=== PATIENT | male | born 1945 | race Caucasian/White ===

== ENCOUNTER 2022-10-02 07:39 | Day surgery (SDC) | payer MEDICARE ==
[2022-10-02] MEDS ORDERED: BUPIVACAINE 0.5% VIAL IJ ONE (07:40)
[2022-10-02] MEDS ORDERED: Depo-Medrol 40 MG/ML IM ONE (07:40)
[2022-10-02] MEDS ORDERED: DIPRIVAN 200 MG/20 ML IV ONE (08:46)
--- NOTE | 2022-10-02 10:17 | XRAY ---
Indication: Bilateral SI joint injection. Intraoperative fluoroscopy provided for 15 seconds. 4 digital spot image submitted for interpretation demonstrates posterior needle tip projecting over the expected left and right SI joint. Correlate with intraoperative findings/report.
--- NOTE | 2022-10-02 10:54 | XRAY ---
15 seconds of fluoroscopy was used in surgery for a bilateral sacroiliac joint injection.
[2022-10-02] MEDS ORDERED: Lactated Ringers 1,000 ML IV ONE (13:33)
== END 2022-10-02 09:10 | disposition home or self-care (01) ==
LOC: SDC-PAIN 07:39
PROVIDERS: ATTEND Psychiatry & Neurology Pain Medicine
DX: M46.1 Sacroiliitis, not elsewhere classified (principal); E11.9 Type 2 diabetes mellitus without complications; Z79.899 Other long term (current) drug therapy
CPT/HCPCS: 01992; 27096; 72202; 77002; 82947; 99100; G0260; J1030; J2704

== ENCOUNTER 2022-11-20 07:55 | Day surgery (SDC) | payer MEDICARE | END 2022-11-20 08:45 | disposition home or self-care (01) | LOC: SDC-PAIN 07:55 | PROVIDERS: ATTEND Psychiatry & Neurology Pain Medicine | DX: Z53.8 Procedure and treatment not carried out for other reasons (principal); E11.9 Type 2 diabetes mellitus without complications | CPT/HCPCS: 82947 ==

== ENCOUNTER 2025-01-19 15:35 | Day surgery (SDC) | payer MEDICARE ==
[2025-01-19] MEDS ORDERED: BUPIVACAINE 0.5% VIAL IJ ONE (15:36)
[2025-01-19] MEDS ORDERED: LIDOCAINE HCL 1% 50 MG/5 ML VL IJ ONE (15:36)
[2025-01-19] MEDS ORDERED: methylPREDNISolone acetate IM ONE (15:36)
--- NOTE | 2025-01-20 08:43 | XRAY ---
Indication: Bilateral SI joint injection. Intraoperative fluoroscopy provided for 21 seconds. 2 digital spot images submitted for interpretation demonstrates posterior needle tips projecting over left and right SI joints. Small amount of contrast injected for needle tip placement. Correlate with intraoperative findings/report.
--- NOTE | 2025-01-20 09:35 | XRAY ---
21 seconds of fluoroscopy was used in surgery for a bilateral sacroiliac joint injection.
== END 2025-01-19 18:37 | disposition home or self-care (01) ==
LOC: SDC-PAIN 15:35
PROVIDERS: ATTEND Psychiatry & Neurology Pain Medicine
DX: M46.1 Sacroiliitis, not elsewhere classified (principal); E11.9 Type 2 diabetes mellitus without complications